=== PATIENT | male | born 1975 | race African-American/Black ===

== ENCOUNTER 2019-03-22 00:52 | Emergency (ER) | payer MEDICAID ==
[~2019-03-22] VITALS: Ht 165.1 cm; Wt 70.3 kg
[2019-03-22 04:36] VITALS: BP 142/93
[2019-03-22] MEDS ORDERED: fentaNYL CITRATE 100 MCG/2 ML VL IV ONE (05:15)
[2019-03-22] MEDS ORDERED: KETOROLAC TROMETH 30 MG/ML 1ML VIAL IV ONE (05:15)
== END 2019-03-22 05:46 | disposition home or self-care (01) ==
LOC: ER 00:55
DX: S06.0X0A Concussion without loss of consciousness, initial encounter (principal); M54.2 Cervicalgia; V49.9XXA Car occupant (driver) (passenger) injured in unspecified traffic accident, initial encounter; Y93.89 Activity, other specified; Y92.89 Other specified places as the place of occurrence of the external cause; Y99.8 Other external cause status
CPT/HCPCS: 70450; 72125